=== PATIENT | male | born 1965 | race Two or more races ===

== ENCOUNTER 2019-08-06 11:04 | Day surgery (SDC) | payer BC, OTHER ==
[2019-08-06] MEDS ORDERED: PROPOFOL 200 MG/20 ML BOTTLE IV ONE (11:05)
[2019-08-06] MEDS ORDERED: LIDOCAINE-MPF 2% 5 ML VIAL IJ ONE (11:05)
[2019-08-06 11:37] LABS: *BILIRUBIN,URIN NEGATIVE (NEGATIVE); *BLOOD, URINE NEGATIVE (NEGATIVE); *CLARITY,URINE CLEAR (CLEAR); *COLOR,URINE YELLOW (YELLOW); *KETONES,URINE NEGATIVE (NEGATIVE); *UROBILINOGEN,URINE 0.2 E.U./dl (NORMAL); LEUKOCYTE ESTERASE ,URINE NEGATIVE (NEGATIVE); NITRITE, URINE NEGATIVE (NEGATIVE); UGLUCOSE NEGATIVE (NEGATIVE)
[2019-08-06 11:41] LABS: BASOPHILS % (AUTO) 0.6 % (0.0-2.0); EOSINOPHILS # (AUTO) 0.1 K/uL (0.0-0.7); EOSINOPHILS % (AUTO) 1.1 % (0.0-7.0); HEMATOCRIT 51.1 % (36.7-47.1); HEMOGLOBIN 17.3 g/dL (12.5-16.3); LYMPHOCYTES # (AUTO) 2.5 K/uL (20.0-40.0); LYMPHOCYTES % (AUTO) 41.3 % (20.5-51.5); MEAN CORPUSCULAR HEMOGLOBIN 28.2 uug (23.8-33.4); MEAN CORPUSCULAR HGB CONC 34 g/dL (32.5-36.3); MEAN CORPUSCULAR VOLUME 83.2 fL (73.0-96.2); MONOCYTES # (AUTO) 0.5 K/uL (2.0-10.0); MONOCYTES % (AUTO) 7.6 % (0.0-11.0); NEUTROPHILS % (AUTO) 49.4 % (38.5-71.5); PLATELET COUNT (AUTO) 205 K/uL (152-348); RED BLOOD CELL COUNT(AUTO) 6.14 MIL/uL (4.06-5.63); WHITE BLOOD COUNT (AUTO) 6.1 K/uL (3.6-10.2)
[2019-08-06 11:46] LABS: CREATININE 0.7 mg/dL (0.6-1.3); POTASSIUM 3.8 mmol/L (3.5-5.1)
[2019-08-06 11:51] LABS: TOTAL PROTEIN, SERUM 7.2 g/dL (6.4-8.2)
[2019-08-06] MEDS ORDERED: SIMETHICONE 40 MG/0.6 ML, 30ML BOTTLE ONE (12:46)
== END 2019-08-06 15:35 | disposition home or self-care (01) ==
LOC: DS 11:04
PROVIDERS: ATTEND Internal Medicine Gastroenterology
DX: Z12.11 Encounter for screening for malignant neoplasm of colon (principal); K64.8 Other hemorrhoids; D12.4 Benign neoplasm of descending colon; D12.8 Benign neoplasm of rectum; E66.9 Obesity, unspecified; I10 Essential (primary) hypertension; Z79.899 Other long term (current) drug therapy; Z98.890 Other specified postprocedural states
CPT/HCPCS: 36415; 45385; 71045; 80053; 81001; 85025; 85730; 88305; 93005; J3490; J7120; A4217; A4663